=== PATIENT | female | born 2000 | race Two or more races ===

== ENCOUNTER 2020-12-31 21:36 | Emergency (ER) | payer SELFPAY ==
[~2020-12-31] VITALS: Ht 165.1 cm; Wt 62.8 kg
--- NOTE | 2020-12-31 22:08 | PHYS DOC ---
Past History Alcohol Use: None Adult General Chief Complaint Chief Complaint: PELVIC PAIN HPI HPI Patient is a 20-year-old female presenting for pubic pain. States onset was just prior to arrival when she was trying to have a bowel movement. States when she was bearing down she felt immediate pain in her rectum and vaginal area, states it felt like something fell out. There is no trauma, no bleeding, she has ongoing pain from this that does not radiate. She is otherwise healthy with no known medical issues. She is not sexually active, has no history of intra- abdominal surgeries. Review of Systems Review of Systems Fourteen body systems of review of systems have been reviewed. See HPI for pertinent positives and negative responses, other rodríguez all other systems are negative, non-pertinent or non-contributory Current Medications Current Medications Current Medications Medications (Trade) Dose Ordered Sig/Johnathon Start Time Stop Time Status Last Admin Dose Admin Diphtheria/ Pertussis/Tetanus Vacc (ADACEL TDap SYRINGE) 0.5 ml ONCE ONCE 12/31/20 22:15 12/31/20 22:16 UNV Neomycin/ Polymyxin/ Bacitracin (Triple Antibiotic Ointment) 1 pkt 1X ONCE 12/31/20 22:15 12/31/20 22:16 UNV Allergies Allergies Allergies Coded Allergies Type Severity Reaction Last Updated Verified No Known Drug Allergies 12/31/20 No Physical Exam Physical Exam Constitutional: Well developed, well nourished, no acute distress, non-toxic appearance. Is in the position and appears uncomfortable on initial exam HENT: Normocephalic, atraumatic, bilateral external ears normal, oropharynx m oist, no oral exudates, nose normal. Eyes: PERRLA, EOMI, conjunctiva normal, no discharge. Neck: Normal range of motion, no tenderness, supple, no stridor. Cardiovascular: Heart rate regular, sinus rhythm, no murmurs rubs or gallops Lungs & Thorax: Bilateral breath sounds clear to auscultation Abdomen: Bowel sounds normal, soft, suprapubic tenderness with palpation without guarding or rebound, no masses, no pulsatile masses. Nonsurgical abdomen, no peritoneal signs. Pelvic exam performed with cupola tapper helper, RN present. External genitalia unremarkable. There is mild suprapubic tenderness and discomfort with palpation. Perianal area unremarkable grossly, no hemorrhoids, anal sphincter well-appearing with appropriate tone, no hemorrhoids or any abnormal findings noted Skin: Warm, dry, no erythema, no rash. Back: No tenderness, no CVA tenderness. Extremities: No tenderness, no cyanosis, no clubbing, ROM intact, no edema. Neurologic: Alert and oriented X 3, grossly normal motor & sensory function, no focal deficits noted. Psychologic: Affect normal, judgement normal, mood normal. Current Patient Data Vital Signs Vital Signs Date Time Temp Pulse Resp B/P (MAP) Pulse Ox O2 Delivery O2 Flow Rate FiO2 12/31/20 21:53 98.0 110 18 116/63 (80) 96 Room Air Vital Signs Date Time Temp Pulse Resp B/P (MAP) Pulse Ox O2 Delivery O2 Flow Rate FiO2 12/31/20 21:53 98.0 110 18 116/63 (80) 96 Room Air Lab Results Laboratory Tests Test 12/31/20 21:50 12/31/20 22:14 Urine Collection Type Unknown Urine Color Yellow Urine Clarity Clear Urine pH 5.5 Urine Specific [place] >=1.030 Urine Protein Neg Urine Glucose (UA) Neg mg/dL Urine Ketones (Stick) Neg mg/dL Urine Blood Neg Urine Nitrite Neg Urine Bilirubin Neg Urine Urobilinogen Dipstick 0.2 mg/dL Urine Leukocyte Esterase Neg Urine RBC 1-2 /HPF Urine WBC 1-4 /HPF Urine Squamous Epithelial Cells Mod /LPF Urine Bacteria Few /HPF Bedside Urine HCG, Qualitative hcg negative Current Medications Medications (Trade) Dose Ordered Sig/Johnathon Route PRN Reason Start Time Stop Time Status Last Admin Dose Admin Diphtheria/ Pertussis/Tetanus Vacc (ADACEL TDap SYRINGE) 0.5 ml ONCE ONCE VAX IM 12/31/20 22:15 12/31/20 22:11 DC Neomycin/ Polymyxin/ Bacitracin (Triple Antibiotic Ointment) 1 pkt 1X ONCE TP 12/31/20 22:15 12/31/20 22:11 DC EKG EKG [] Radiology/Procedures Radiology/Procedures [] Heart Score C/O Chest Pain: No Risk Factors: Risk Factors: DM, Current or recent (<one month) smoker, HTN, HLP, family history of CAD, obesity. Risk Scores: Risk Factors: DM, Current or recent (<one month) smoker, HTN, HLP, family history of CAD, obesity. Course & Med Decision Making Course & Med Decision Making ABCs unremarkable History physical exam and comprehensive ER work-up nonconcerning for any emergent or surgical issues Based on physical exam there is low suspicion for concerning abnormalities such as ovarian torsion, appendicitis, any type of vaginal and/or rectal prolapse etc. Given examination today I discussed potential need for further diagnostic work-up in ER setting such as blood and further imaging but joint decision among all to defer to outpatient primary care provider who patient has good access to Strict return precautions discussed at length with good understanding by patient and grandmother at bedside. All questions and concerns addressed prior to ER departure Dragdanisha Disclaimer Dragon Disclaimer This electronic medical record was generated, in whole or in part, using a voice recognition dictation system. Departure Departure: Impression: Primary Impression: Suprapubic pain Disposition: HOME / SELF CARE / HOMELESS Condition: STABLE Referrals: PCP,NO (PCP) Additional Instructions: You have been evaluated in the Emergency Department today for generalized suprapubic/pelvic/rectal pain. Your evaluation was not suggestive of any emergent condition requiring medical intervention at this time. However, some abdominal problems make take more time to appear. Therefore, it is important for you to watch for any new symptoms or worsening of your current condition. I did disclose potential for concerning diagnoses such as ovarian torsion or other intra-abdominal/pelvic abnormalities but based on vitals, history and physical examination, these are less likely. Regardless, it is imperative that you follow-up with your primary care physician this upcoming week to review ER visit and to ensure symptomatic improvement. Return to the Emergency Department if you experience worsening pain, persistent fevers greater than 100.4, recurrent vomiting, blood in vomit, blood in stool, dark tarry stool, chest pain, difficulty breathing, or any other concerning symptoms. CÉSAR COLLINS DO Dec 31, 2020 22:08
[2020-12-31] MEDS ORDERED: NEOMY/BACITR/POLYMYXIN OINT PACKET. TP ONE (22:15)
[2020-12-31] MEDS ORDERED: DIPH,PERTUSS(ACELL),TET VAC/PF 0.5 ML SYRINGE. VAX IM ONE (22:15)
[2020-12-31 22:37] LABS: BACTERIA,URINE FEW /HPF (0-FEW); BILIRUBIN,URINE NEG (NEG); CLARITY,URINE CLEAR; COLOR,URINE YELLOW; GLUCOSE,URINE NEG (NEG); NITRITE,URINE NEG (NEG); SQUAMOUS EPITHELIAL CELL,UR MOD /LPF; UROBILINOGEN,URINE 0.2 mg/dL (0.2 mg/dL)
[2020-12-31 23:15] VITALS: BP 110/68
== END 2020-12-31 23:20 | disposition home or self-care (01) ==
LOC: ER 21:36
DX: R10.2 Pelvic and perineal pain (principal)
CPT/HCPCS: 81001; 81025; 99283-25